=== PATIENT | female | born 1935 | race Caucasian/White ===

== ENCOUNTER → 2018-02-26 | Outpatient (CLI) | payer MEDICARE, MEDICAID | LOC: M RAD 13:50 | DX: N18.4 Chronic kidney disease, stage 4 (severe) (principal) | CPT/HCPCS: 76775 ==

== ENCOUNTER → 2018-05-16 | Outpatient (REF) | payer MEDICARE, MEDICAID ==
[2018-05-16 17:59] LABS: FREE T4 1.54 NG/DL (0.76-1.46)
== END ==
LOC: M LAB REF 17:10
DX: E03.9 Hypothyroidism, unspecified (principal)
CPT/HCPCS: 84443

== ENCOUNTER → 2018-07-05 | Outpatient (REF) | payer MEDICARE, MEDICAID ==
[2018-07-08 14:40] LABS: URINE VOLUME RANDOM ML
[2018-07-08 14:41] LABS: UPEP INTERPRETATION NO M-SPIKE NOTED
== END ==
LOC: M LAB REF 13:02
DX: N39.0 Urinary tract infection, site not specified (principal); D63.1 Anemia in chronic kidney disease; E83.52 Hypercalcemia

== ENCOUNTER → 2018-08-19 | Outpatient (REF) | payer MEDICARE, MEDICAID ==
[2018-08-19 19:16] LABS: PTH INTACT 18.6 PG/ML (18.5-88.0)
== END ==
LOC: M LAB REF 17:25
DX: E83.52 Hypercalcemia (principal)
CPT/HCPCS: 83970

== ENCOUNTER 2018-11-05 10:28 | Inpatient (IN) | payer MEDICARE, MEDICAID ==
[~2018-11-05] VITALS: Ht 147.3 cm; Wt 29.3 kg
[~2018-11-05 10:28] MED LIST: AMLO5TAB6 PO; AMLODIPINE; CALC1CAP31 PO; FERR32TA PO; LEVO250T12 PO; LOSA100T50 PO; MEGE400SUS PO
[2018-11-05] MEDS ORDERED: NS 1,000 ML IV ONE ×2 (11:00→13:30)
[2018-11-05 12:12] LABS: BASO % 0.3 % (0.0-1.0); EOS # 0.1 10^3/uL (0.0-0.50); EOS % 0.4 % (0.0-3.0); HEMOGLOBIN 10.5 g/dl (12.0-15.5); LYMPH # 1.7 10^3/uL (1.5-4.5); LYMPH % 11.9 % (24.0-44.0); MEAN CORPUSCULAR HEMOGLOBIN 27.7 pg (27.0-33.0); MEAN CORPUSCULAR HGB CONC 30.9 g/dl (32.0-36.5); MEAN CORPUSCULAR VOLUME 89.7 fl (80.0-96.0); MONO # 1.6 10^3/uL (0.0-0.8); MONO % 11.2 % (0.0-5.0); NEUTROPHILS # 10.7 10^3/uL (1.8-7.7); NEUTROPHILS % 75.4 % (36.0-66.0); PLATELET COUNT, AUTOMATED 288 10^3/uL (150-450); RED BLOOD COUNT 3.79 10^6/uL (4.00-5.40); WHITE BLOOD COUNT 14.2 10^3/uL (4.0-10.0)
--- NOTE | 2018-11-05 12:17 | REP ---
Chest x-ray: Single view. History: Weakness. Comparison study: July 05, 2018. Findings: There is evidence of left pleural effusion. There is a air and fluid density in the left base which may be a hiatal hernia or cavitary lesion. There is a large opacity in the left base as well. Findings are essentially unchanged from July 05, 2018. They are new when compared with 2006 prior radiograph. Impression: Large area of pleuroparenchymal opacity left base. Possible cavitary change. Possible hiatal hernia. Consider chest CT study. Electronically Signed by Facundo Garcia MD 11/05/2018 12:08 P
[2018-11-05 12:48] LABS: ALBUMIN 2.7 GM/DL (3.2-5.2); BILIRUBIN,DIRECT 0.1 MG/DL (0.0-0.2); BILIRUBIN,TOTAL 0.3 MG/DL (0.2-1.0); CALCIUM LEVEL 12.7 MG/DL (8.8-10.2); CREATININE FOR GFR 2.72 MG/DL (0.55-1.30); GLOMERULAR FILTRATION RATE 17.8 (>32); POTASSIUM SERUM 5.9 MEQ/L (3.5-5.1); TROPONIN I 0.07 NG/ML (< 0.10)
[2018-11-05 14:35] VITALS: BP 119/54
[2018-11-05 15:06] LABS: PTH INTACT 20.8 PG/ML (18.5-88.0); TOTAL 25(OH) VITAMIN D 42.5 NG/ML (30.0-100.0)
--- NOTE | 2018-11-05 15:33 | REP ---
CT chest without contrast: History: Abnormal chest x-ray. CT findings: Overall, the lungs are hyperinflated. There is a large dense area of necrotic consolidation in the left lower lobe. This contains air and some fluid. It has convex anterior, superior and inferior borders. There is a small quantity of adjacent pleural fluid suspected. It is less than optimally visualized in the absence of intravenous contrast. There is evidence of occlusion or obstruction of the lower lobe bronchus at the upper margin of the lesion. There appears to be subcarinal adenopathy. Scattered AP window and left hilar lymph nodes are seen consistent with some mediastinal adenopathy. Emphysematous changes are noted in the upper lobes bilaterally. Fairly heavy vascular calcifications noted. No adrenal lesion is seen. The upper portion of the left kidney is included in the field of view and is unremarkable. I do not see a right kidney. Right renal atrophy was reported on previous ultrasound. No bony destructive lesion is seen. Impression: Large necrotic mass versus infiltrate in the left lower lobe of the lung with air fluid levels internally. There is evidence of left hilar and mediastinal lymphadenopathy. Malignancy versus chronic lung abscess. Electronically Signed by Facundo Garcia MD 11/05/2018 06:11 P
[2018-11-05] MEDS: NS 1,000 ML IV SCH ×2 (15:50→23:11)
--- NOTE | 2018-11-05 17:02 | HPE ---
DATE OF ADMISSION: 11/05/2018 An 83-year-old female with past medical history of chronic kidney disease (CKD) IV, hypertension, hyperlipidemia, asthma, mild dementia presents to the emergency room for decreased oral intake for the last week. According to the family, this has been progressive. With that and increased lethargy, she was brought to the emergency room (ER) for evaluation. In the ER she was found to be in acute renal failure and was started on intravenous (IV) fluids. A chest x-ray did showed possible cavitary lesion in the left lower lobe. CT chest confirmed it, and likely is a possibility of malignancy. Upon recent admission in June, it was noted that she lost approximately 30 pounds. She was hypercalcemic back then, and she is more hypercalcemic this time. To note, the cavitary lesion also cannot exclude the possibility of a consolidation near it, though the patient denies any upper respiratory symptoms. The patient was started on IV Zosyn, and, again, IV fluids were initiated. She will be admitted for further management. PAST MEDICAL HISTORY: 1. CKD IV. 2. Hypertension. 3. Hyperlipidemia. 4. Osteoporosis. 5. Asthma. 6. Mild dementia. ALLERGIES: No known drug allergies. FAMILY HISTORY: Noncontributory. SOCIAL HISTORY: Patient was a pack a day smoker since she was a teenager. Quit approximately 3 yeas ago. She denies any alcohol or illicit drugs. HOME MEDICATIONS: As per pharmacy's reconciliation, the patient is currently on no medications. REVIEW OF SYSTEMS: Negative for all 10 major symptoms except what is mentioned in the history of present illness (HPI). VITAL SIGNS: Blood pressure 87/46, heart rate 77 and regular, respiratory rate 20, temperature is 96.9 with saturation 96% on room air. Head is atraumatic, normocephalic. NECK: Supple. No jugular venous distention (JVD). LUNGS: Clear to auscultation. S1, S2 audible. No murmurs appreciated. ABDOMEN: Soft. Positive bowel sounds. No pedal edema. SKIN: Intact. NEUROLOGIC: Patient is awake, alert, oriented times two. LABORATORY DATA: Sodium is 134, potassium 5.9, chloride 98, CO2 of 27. Anion gap 9, BUN 52, creatinine 2.72, glucose is 102, lactic acid 2.5, calcium is 12.7, corrected calcium is 13.7. Troponin 0.07. Creatine kinase 24. Lipase 97. AST 28, ALT 36. WBC 14.2, hemoglobin 10.5, hematocrit 34, platelets are 288,000. Urinalysis (UA) is negative for urinary tract infection (UTI). IMPRESSION: 1. Left lung cavitary mass. 2. Left lower lobe pneumonia. 3. Acute kidney injury. 4. Hypercalcemia. PLAN: Patient will be admitted to medical/surgical floor with telemetry. Will continue intravenous (IV) hydration, normal saline (NS) at 100 an hour. Unfortunately we cannot give Lasix. She is in acute kidney injury (BRITANY), and I feel this is all dehydration and prerenal in origin. Nephrology will be consulted, and I will discuss if intranasal calcitonin or pamidronate would be necessary at this time. Will follow BUN and creatinine trends daily. As far as the left lung cavitary lesion is concerned, I spoke with the son personally, and he is in agreement that no further testing should be done with pulmonary for tissue diagnosis of cancer. Though, from a clinical perspective this is most likely lung cancer (CA). Patient's family is also considering the possibility of transferring her to shelter facility. She is DO NOT RESUSCITATE/DO NOT INTUBATE; however, the talk of comfort measures only will be discussed with the family.
[2018-11-05] MEDS: PIPERACILLIN/TAZOBACTAM SOD 2.25 GM in D5W MINI-BAG PLUS 50 ML IV SCH (17:03)
--- NOTE | 2018-11-05 20:05 | ECGEPIP ---
Stationary ECG Study [facility] - ED Test Date: 2018-11-05 Pat Name: RASHAWN SHEIKH Department: Room: - Gender: F Elephant Keeper: sintia : 1935 Requested By: Archie Jackson Order Number: [id number] Reading MD: Archie Jackson Measurements Intervals [place] Rate: 75 P: 80 AK: 162 QRS: 18 QRSD: 125 T: 81 QT: 382 QTc: 429 Interpretive Statements SINUS RHYTHM WITH OCCASIONAL VENTRICULAR PREMATURE COMPLEXES LEFT BUNDLE BRANCH BLOCK BASELINE ARTIFACT MAY AFFECT READING CW 07/05/[address] T WAVE CHANGES Electronically Signed On 11-05-2018 20:04:59 EST by Archie Jackson
[2018-11-05] MEDS: CALCITONIN SALMON (MIACALCIN) 400INTERNATIONAL UNITS/2ML INJ (J0630) SQ SCH (21:28)
[2018-11-05 22:00] VITALS: BP 105/59
[2018-11-06] MEDS: PIPERACILLIN/TAZOBACTAM SOD 2.25 GM in D5W MINI-BAG PLUS 50 ML IV SCH ×3 (01:09→17:36)
[2018-11-06 06:00] VITALS: BP 109/53
[2018-11-06 06:15] LABS: BASO % 0.3 % (0.0-1.0); EOS # 0.2 10^3/uL (0.0-0.50); EOS % 1.5 % (0.0-3.0); HEMATOCRIT 26.4 % (36.0-47.0); LYMPH # 2.2 10^3/uL (1.5-4.5); LYMPH % 18.9 % (24.0-44.0); MEAN CORPUSCULAR HEMOGLOBIN 27.5 pg (27.0-33.0); MEAN CORPUSCULAR HGB CONC 31.1 g/dl (32.0-36.5); MEAN CORPUSCULAR VOLUME 88.6 fl (80.0-96.0); MONO # 1.3 10^3/uL (0.0-0.8); MONO % 10.8 % (0.0-5.0); NEUTROPHILS # 7.9 10^3/uL (1.8-7.7); NEUTROPHILS % 67.8 % (36.0-66.0); PLATELET COUNT, AUTOMATED 238 10^3/uL (150-450); RED BLOOD COUNT 2.98 10^6/uL (4.00-5.40); WHITE BLOOD COUNT 11.7 10^3/uL (4.0-10.0)
[2018-11-06 06:22] LABS: HEMOGLOBIN 8.2 g/dl (12.0-15.5)
[2018-11-06 06:53] LABS: ALBUMIN 1.9 GM/DL (3.2-5.2); BILIRUBIN,TOTAL 0.2 MG/DL (0.2-1.0); CALCIUM LEVEL 9.8 MG/DL (8.8-10.2); CREATININE FOR GFR 2.16 MG/DL (0.55-1.30); GLOMERULAR FILTRATION RATE 23.2 (>32); POTASSIUM SERUM 4.5 MEQ/L (3.5-5.1); TOTAL PROTEIN 5.7 GM/DL (6.4-8.2)
[2018-11-06] MEDS: CALCITONIN SALMON (MIACALCIN) 400INTERNATIONAL UNITS/2ML INJ (J0630) SQ SCH (09:19)
[2018-11-06] MEDS: NS 1,000 ML IV SCH ×2 (09:19→22:11)
[2018-11-06] MEDS ORDERED: PATIROMER SORBITEX CALCIUM 8.4 GM POWDER PACKET (VELTASSA) PO SCH (12:00)
[2018-11-06 14:00] VITALS: BP 132/59
--- NOTE | 2018-11-06 17:47 | IPNPDOC ---
Date Seen The patient was seen on 11/06/18. Progress Note SUBJECTIVE: Patient is a 83-year-old female with decreased oral intake. Patient is evaluated at bedside this morning. She is hard of hearing. Follow-up evaluation occurred later in the day when patient's son was available. Spoke with son at length regarding treatment options. Son is aware of questionable mass in left lower lobe which was noted on prior imaging on patient's last admission in June 2018. Son notes that patient has been in declining health over the last year and that he is the primary caregiver for his mother. He has attempted to solicit in-home health care, but states his mother dismisses their services and according to the son only wants him to care for her. He notes that after discharge from her prior admission her appetite was somewhat improved, but has been declining over the last several months and more dramatically over the last several days. Son states that he is finding it increasingly difficult to care for his mother as he has his own health concerns. Patient was recently at her primary care provider's office with recommendation to presented to the hospital for potential long-term placement. Patient is able to correctly identify herself, her date of , alert , the month, and vague reasoning for why she is in the hospital (she is sick). However, she is unable to correctly identify the year or the current president. A discussion was had with patient regarding long-term care. She stated that she is uncertain where her current treatment would end up. She is receptive to speaking with the renal social worker. She states that she is independent at home. She confirms that she has had falls at home. OBJECTIVE PHYSICAL EXAMINATION: VITAL SIGNS: Please see below. GENERAL: Frail, cachectic, pale elderly female, appears to be resting comfortably in the supine position in hospital., Hard of hearing, but alert and conversant and on since questions appropriately, does not appear to be in distress. HEENT: Atraumatic, normocephalic, temporal wasting, facial features are cachectic appearing, PERRL, EOMI, oral mucosa appears somewhat dry, nasal septum appears midline, nares are patent, trachea is midline, no lymphadenopathy, no thyromegaly. CARDIOVASCULAR: Regular rate and rhythm, normal S1 and S2, no murmur, rub, cl ick. RESPIRATORY: Clear to auscultation bilaterally, adequate inspiratory and extremity airway excursion, no audible focal consolidations, diminished in the left lower base, no crackles, wheeze, rhonchi. ABDOMINAL: Cachectic, no organomegaly, no rebound, no guarding, soft, nontender, nondistended, bowel sounds appreciated. EXTREMITIES: Cachectic, pale, no cyanosis, no clubbing, no peripheral edema. NEUROLOGICAL: No focal neurological deficits. PSYCHOLOGICAL: Mood and affect appear appropriate, hard of hearing. LABORATORY DATA, IMAGING STUDIES, MICROBIOLOGY: Please see below. Chest x-ray, 1 view on 11/05/2018 - large pleural parenchymal opacity left base. CT chest without contrast on 11/05/2018 - myalgia chronic mass versus infiltrate in left lower lobe with a fluid levels intentionally, evidence of left hilar and mediastinal lymphadenopathy. DVT prophylaxis ordered?: TEDs and sequentials. ASSESSMENT AND PLAN: This is a 83-year-old female with failure to thrive. PROBLEMS: 1. Failure to thrive: Reported weight in June 2018 was 33.64 kg. Current weight is reported at 29.27 kg. Current BMI is 13.5. Patient has poor oral intake. Patient is hypotensive likely secondary to decreased oral intake. Continue with normal saline at 60 mLs per hour. Have added Ensure Enlive and full nutritional assessment. Have added physical therapy for evaluation of weakness and deconditioning. Patient family services have been in contact with long-term care facility who will review patient's chart. Patient is a DNR/DNI. 2. Possible left lower lobe cavitary lesion: Mass versus abscess versus infiltrate. Son has stated that they would not like any invasive procedures or testing to determine etiology of finding on imaging. Lactic acidosis and leukocytosis likely result of underlying, currently unknown, lung lesion. Blood cultures have been negative. Urinalysis is negative. Empirically treating patient with Zosyn for the time being for possible infiltrative disease. Will attempt to obtain a sputum Gram stain and culture. 3. Hypercalcemia: Nephrology has been consulted. Corrected calcium is 11.5. Patient is on calcitonin. 25-hydroxy vitamin D level was within normal limits. Obtaining a PTH and 1, 25-hydroxy vitamin D level, and a PTHrP level. Nephrology has been consulted. 4. Hyperkalemia: Appears resolved. Continue patient on Veltassa. Nephrology has been consulted. 5. Chronic kidney disease, stage IV: Nephrology has been consulted. Cautiously providing intravenous fluid resuscitation with normal saline at 60 mLs per hour. Patient is DNR/DNI. Patient's son has indicated that they would not want any invasive procedures, such as dialysis catheters inserted into the patient. 6. Anemia: Patient does not appear to be actively bleeding. Will obtain iron studies and stool for occult bleeding. 7. Severe protein calorie malnutrition: BMI 13.5. Ensure Enlive has been added to diet. Full nutritional assessment has been ordered. DISPOSITION: PFS consultation. Physical therapy evaluation. VS, I&O, 24H, Fishbone Vital Signs/I&O Vital Signs Date Time Temp Pulse Resp B/P (MAP) Pulse Ox O2 Delivery O2 Flow Rate FiO2 11/06/18 14:00 97.6 90 16 132/59 (83) 96 Room Air I&O- Last 24 Hours up to 6 AM 11/06/18 06:00 Intake Total 3250 ml Output Total 780 ml Balance 2470 ml Laboratory Data 24H LABS Laboratory Tests 2 11/06/18 05:47: Immature Granulocyte % (Auto) 0.7, White Blood Count 11.7H, Red Blood Count 2.98L, Hemoglobin 8.2#L, Hematocrit 26.4L, Mean Corpuscular Volume 88.6, Mean Corpuscular Hemoglobin 27.5, Mean Corpuscular Hemoglobin Concent 31.1L, Red Cell Distribution Width 14.6H, Platelet Count 238, Neutrophils (%) (Auto) 67.8H, Lymphocytes (%) (Auto) 18.9L, Monocytes (%) (Auto) 10.8H, Eosinophils (%) (Auto) 1.5, Basophils (%) (Auto) 0.3, Neutrophils # (Auto) 7.9H, Lymphocytes # (Auto) 2.2, Monocytes # (Auto) 1.3H, Eosinophils # (Auto) 0.2, Basophils # (Auto) 0.0, Nucleated Red Blood Cells % (auto) 0.0, Anion Gap 8, Glomerular Filtration Rate 23.2L, Blood Urea Nitrogen 43H, Creatinine 2.16H, Sodium Level 137, Potassium Level 4.5#, Chloride Level 108H, Carbon Dioxide Level 21, Calcium Level 9.8#, Aspartate Amino Transf (AST/SGOT) 27, Alanine Aminotransferase (ALT/SGPT) 27, Alkaline Phosphatase 98, Total Bilirubin 0.2, Total Protein 5.7L, Albumin 1.9#L, Albumin/Globulin Ratio 0.50L CBC/BMP Laboratory Tests 11/06/18 05:47 Red Blood Count 2.98 L, Mean Corpuscular Volume 88.6, Mean Corpuscular Hemoglobin 27.5, Mean Corpuscular Hemoglobin Concent 31.1 L, Red Cell Distribution Width 14.6 H, Neutrophils (%) (Auto) 67.8 H, Lymphocytes (%) (Auto) 18.9 L, Monocytes (%) (Auto) 10.8 H, Eosinophils (%) (Auto) 1.5, Basophils (%) (Auto) 0.3, Neutrophils # (Auto) 7.9 H, Lymphocytes # (Auto) 2.2, Monocytes # (Auto) 1.3 H, Eosinophils # (Auto) 0.2, Basophils # (Auto) 0.0, Calcium Level 9.8 #, Aspartate Amino Transf (AST/SGOT) 27, Alanine Aminotransferase (ALT/SGPT) 27, Alkaline Phosphatase 98, Total Bilirubin 0.2, Total Protein 5.7 L, Albumin 1.9 #L Microbiology Microbiology 11/05/18 Blood Culture - Preliminary, Resulted No growth after 24 hours . All specim... 11/05/18 Blood Culture - Preliminary, Resulted No growth after 24 hours . All specim... ROSEMARY FARIAS DO Nov 06, 2018 17:47
[2018-11-06 19:06] LABS: PERCENT SATURATION 14.7 % (13.2-45.0)
[2018-11-06 19:14] LABS: FOLATE 9.2 NG/ML (>5.4)
[2018-11-06] MEDS ORDERED: VANCOMYCIN HCL 500 MG in D5W MINI-BAG PLUS 100 ML IV ONE (20:15)
[2018-11-06 22:00] VITALS: BP 120/56
--- NOTE | 2018-11-06 23:27 | PHACANCOPD ---
PHARMACY VANCOMYCIN DOSING Pt Demographics Demographics Patient Age:83 , Weight:29.270 , Gender: female Adjusted Body Weight Events Past 24 Hours Events Past 24 Hours: NO: Dialysis, Diuretic Therapy, Change in CrCl, Fever, Elevation in WBC, Pending Diagnostics, Pending Procedures, Other Vancomycin Vancomycin indication: PNEUMONIA Vancomycin Target Ranges: 15-20 mcg/ml Vancomycin Load Y/N: No Load Dose Date Time Vancomycin Load Dose: 500MG Date: 11/06/18 Time: 22:15 per NEPHR OLOGY Vancomycin Dose Date: 11/07/18. Current Vancomycin Dose: [500MG IV Q24H (21:00)] Intermittent Dosing?: No Labs Labs Laboratory Tests 11/06/18 05:47 Red Blood Count 2.98 L, Mean Corpuscular Volume 88.6, Mean Corpuscular Hemoglobin 27.5, Mean Corpuscular Hemoglobin Concent 31.1 L, Red Cell Distribution Width 14.6 H, Neutrophils (%) (Auto) 67.8 H, Lymphocytes (%) (Auto) 18.9 L, Monocytes (%) (Auto) 10.8 H, Eosinophils (%) (Auto) 1.5, Basophils (%) (Auto) 0.3, Neutrophils # (Auto) 7.9 H, Lymphocytes # (Auto) 2.2, Monocytes # (Auto) 1.3 H, Eosinophils # (Auto) 0.2, Basophils # (Auto) 0.0, Calcium Level 9.8 #, Aspartate Amino Transf (AST/SGOT) 27, Alanine Aminotransferase (ALT/SGPT) 27, Alkaline Phosphatase 98, Total Bilirubin 0.2, Total Protein 5.7 L, Albumin 1.9 #L Micro Microbiology 11/05/18 Blood Culture - Preliminary, Resulted No growth after 24 hours . All specim... 11/05/18 Blood Culture - Preliminary, Resulted No growth after 24 hours . All specim... Creatinine Clearance Date:11/06/18. Creatinine Clearance: [<15ml/min]. Pending Labs VANCO TROUGH 11/08/18 21:00 DOSE Assessment and Plan Maintaining Current Dose?: Yes Reason for dose change: No Dose Change Pharmacist Note Pharmacist Note Date: 11/06/18. PharmD note: VANCO 500MG IV x DOSE PER NEPHROLOGY WITH Rx TO CONSULT FOR VANCO TROUGH GOAL 15-20 mcg/ml. WE WILL CONTINUE WITH VANCO 500MG IV Q24H STARTING 11/07/18 @ 21:00 A VANCO TROUGH HAS BEEN ORDERED 60 MINUTES PRIOR TO THE 11/08/18 PRIOR TO THE 21:00 DOSE [facility]LLY [facility]UL[facility] Nov 06, 2018 23:27
[2018-11-07] MEDS: PIPERACILLIN/TAZOBACTAM SOD 2.25 GM in D5W MINI-BAG PLUS 50 ML IV SCH ×3 (01:06→17:04)
[2018-11-07 06:00] VITALS: BP 113/53
[2018-11-07 06:31] LABS: BASO % 0.3 % (0.0-1.0); EOS # 0.2 10^3/uL (0.0-0.50); EOS % 1.3 % (0.0-3.0); HEMATOCRIT 26.7 % (36.0-47.0); HEMOGLOBIN 8.3 g/dl (12.0-15.5); LYMPH % 16.2 % (24.0-44.0); MEAN CORPUSCULAR HEMOGLOBIN 27.3 pg (27.0-33.0); MEAN CORPUSCULAR HGB CONC 31.1 g/dl (32.0-36.5); MEAN CORPUSCULAR VOLUME 87.8 fl (80.0-96.0); MONO # 1.6 10^3/uL (0.0-0.8); MONO % 12.5 % (0.0-5.0); NEUTROPHILS # 8.6 10^3/uL (1.8-7.7); PLATELET COUNT, AUTOMATED 266 10^3/uL (150-450); RED BLOOD COUNT 3.04 10^6/uL (4.00-5.40); WHITE BLOOD COUNT 12.4 10^3/uL (4.0-10.0)
[2018-11-07 06:59] LABS: ALBUMIN 1.9 GM/DL (3.2-5.2); CALCIUM LEVEL 8.8 MG/DL (8.8-10.2); CREATININE FOR GFR 1.8 MG/DL (0.55-1.30); GLOMERULAR FILTRATION RATE 28.6 (>32); PHOSPHORUS LEVEL 2.4 MG/DL (2.5-4.9); POTASSIUM SERUM 3.9 MEQ/L (3.5-5.1)
[2018-11-07] MEDS ORDERED: IRON SUCROSE 100MG 5ML VIAL (J1756 PER 1MG) IV SCH (09:00)
[2018-11-07] MEDS: IRON SUCROSE 200 MG in NS 100 ML OVER 1 HR IV SCH (09:28)
--- NOTE | 2018-11-07 10:16 | CR ---
DATE: 11/06/2018 REQUESTING PHYSICIAN: Dr. Zi Moore REASON FOR CONSULTATION: Management of acute kidney injury and hypercalcemia. CHIEF COMPLAINT: Patient was brought to the hospital with progressive lethargy, decreased oral intake and failure to thrive. HISTORY OF PRESENT ILLNESS: Note: History was obtained from the patient's chart and from the medical team. Patient was unable to provide any reliable history. Valery Johnson is an 83-year-old female with a past medical history of chronic kidney disease stage IV with the best baseline creatinine of around 1.8 as of June 2018. Hypertension, dementia, hard of hearing. She was brought to the emergency room because of progressive failure to thrive, decreased oral intake, weakness, lethargy. Further investigation including imaging and lab review in the emergency room showed the patient was in acute renal failure with a creatinine of 2.7. She was hyperkalemic with a potassium of 5.9 and hypercalcemic with a calcium of 12.7. Patient was also found to have leukocytosis and lactic acidosis. She was admitted under the hospitalist service last night. She was started on IV fluid hydration and was started on empiric antibiotic coverage. Chest x-ray followed by CT scan in the emergency room showed that she had a cavitary lesion in the left lower lobe of the lung, which was concerning for malignancy. I saw and evaluated the patient this morning at the bedside. She is very hard of hearing. She answers very few questions. With the IV fluid hydration overnight, that I already discussed with the admitting hospitalist, Dr. Moore, her renal function is improving. Her electrolytes are also getting better. Patient is very weak and cachectic. I have already decreased her IV fluid rate to 60 mL/h. PAST MEDICAL HISTORY: Chronic kidney disease stage IV. Baseline creatinine of around 1.8 as of June 2018. Hypertension. Hyperlipidemia. Osteoporosis. Dementia. Asthma. Anemia. PAST SURGICAL HISTORY: History of open reduction internal fixation of the right hip fracture. Bilateral cataract surgery. ALLERGIES: No known drug allergies. FAMILY HISTORY: No significant family history of end-stage renal disease requiring hemodialysis. SOCIAL HISTORY: No history of illicit drug abuse or alcohol abuse. Patient used to be an active smoker. She quit 3 years ago. REVIEW OF SYSTEMS: She was unable to provide any reliable review of systems to me. She is very hard of hearing and she answers very few questions. PHYSICAL EXAMINATION: GENERAL: Patient is awake and alert. Very weak, cachectic with bitemporal wasting sitting up in the bed. VITAL SIGNS: Temperature is 96.9 degrees Fahrenheit, blood pressure 87/46, pulse 77, respiratory rate 20, saturating 96% in room air. Intake and output: Urine output recorded as 1370 mL overnight. HEAD/NECK: Patient has bitemporal wasting and cachectic. Mucous membranes are moist. Neck is supple. There is no jugular venous distention (JVD). CARDIOVASCULAR: S1, S2 regular rate. No murmur, rub or gallop. RESPIRATORY: Decreased breath sounds at the bases, especially on the left side. ABDOMEN: Soft, positive bowel sounds. Nontender. No organomegaly. MUSCULOSKELETAL: No clubbing or stenosis. Pulses are 2+. PRE PRESS OPERATOR: No focal deficit. Patient is very hard of hearing. She follows few commands. SKIN: No rashes or ulcers. LAB REVIEW: CBC showed a WBC 11.7, hemoglobin 8.2, platelets 238. BMP showed sodium 137, potassium 4.5, chloride 108, bicarbonate 21, BUN 43, creatinine 2.1. Lactic acid this morning is 2.3. Calcium 9.8, iron 20, TIBC 136, transferrin saturation 14.7, ferritin 275, albumin 1.9. BMP on arrival showed sodium 134, potassium 5.9, chloride 98, bicarbonate 27, BUN 52, creatinine 2.7, calcium 12.7. Microbiology: Blood cultures are negative so far. IMAGING: A CT of the chest was done without contrast which showed large necrotic mass versus infiltrate in the left lower lobe of the lung with air fluid levels internally. There is evidence of a left hilar and mediastinal lymphadenopathy. Malignancy versus chronic lung abscess. HOME MEDICATIONS: Patient's home medications included iron tablet, Levaquin and Megace. CURRENT INPATIENT MEDICATIONS: The patient's inpatient medications include normal saline. I decreased the rate to 60 mL/h. She is on Zosyn 2.5 gram every 8 hours. She has been taking calcitonin 120 units subcutaneous every 12 hours. She is on Veltassa, which I am holding at this point since potassium level is improved. ASSESSMENT: 83-year-old female with acute kidney disease superimposed on chronic kidney disease stage IV, hyperkalemia, hyponatremia, hypercalcemia, left-sided cavitary lung lesion with superimposed pneumonia. PLAN: 1. Acute kidney injury superimposed on chronic kidney disease stage IV: It is secondary to dehydration and volume depletion. Patient was started on IV fluid hydration. I already discussed the case with the admitting physician overnight. Patient's renal function is improving. Creatinine has come down to 2.1. Baseline creatinine is 1.8. Given her body mass and weight of only 29 kg, I decreased the IV fluid rate to 60 mL/h only. 2. Hyperkalemia: This is secondary to a worsening renal failure. Patient was given a dose of Veltassa. She is also getting IV fluid hydration. With improving urine output potassium level has improved. No further need of use of Veltassa. 3. Hyponatremia: It was hypovolemic hyponatremia. Sodium is improving with IV fluid hydration. 4. Left lower lobe pneumonia: Patient most likely has superimposed pneumonia on the left-sided lung mass. Continue current dose of Zosyn 2.5 grams every 8 hours, which adequately covers gram negatives and aerobes as well. I am going to start the patient on vancomycin as well for gram positive coverage. 5. Anemia and chronic kidney disease stage IV: Patient has iron deficiency as well. I am going to start the patient on IV iron. 6. Protein calorie malnutrition: I am going to start the patient Nepro one can daily with lunch. 7. Left lower lobe lung cavitary lung lesion: Patient most likely has a malignancy on the left side. As per documentation, patient's family members do not want any aggressive further workup or treatment. Continue conservative management only. Patient is a DO NOT RESUSCITATE at this point. 8. Hypercalcemia: It is most likely related to malignancy. Patient was admitted with hypercalcemia previously as well. During previous hospitalization, it was deemed secondary to use of her calcitriol but at this point, clearly cavitary lung lesion along with hypercalcemia is most likely secondary to malignancy. Patient is already getting IV fluid hydration and weight-based calcitonin. Calcium level is already improving. No need of use of zoledronic acid in this patient. PTH appropriately low. Vitamin levels are within normal range. Thank you for involving me in the case of this patient. I shall be happy to follow the patient along with you tomorrow morning. [facility]
[2018-11-07 12:00] VITALS: BP 145/66
[2018-11-07 14:00] VITALS: BP 145/66
--- NOTE | 2018-11-07 17:18 | IPNPDOC ---
Date Seen The patient was seen on 11/07/18. Progress Note SUBJECTIVE: Patient is a 83-year-old female with decreased oral intake. Patient is evaluated at bedside this morning. Her son and [id number] are present at bedside. Patient is hard of hearing. She states that she feels she has difficulty breathing, but does not feel short of breath. She is not nauseous, vomiting, or having abdominal pain. She is not having chest pain. Family state that prior to admission to the hospital patient would rarely consume three meals daily and would spend majority of her time in bed. Family feels as though she has become more reliant on them for support and although they have attempted to get home health in the home, she has always dismissed them. Family do feel that she is safe to go home. She currently lives independently with family visiting daily to prepare meals. OBJECTIVE PHYSICAL EXAMINATION: VITAL SIGNS: Please see below. GENERAL: Frail, cachectic, pale elderly female, appears to be resting comfortably in the supine position in hospital, hard of hearing, but alert and conversant, answers questions appropriately, does not appear to be in distress. HEENT: Atraumatic, normocephalic, temporal wasting, facial features are cachectic appearing, PERRL, EOMI, wears spectacles, oral mucosa appears somewhat dry, nasal septum appears midline, nares are patent, trachea is midline, no lymphadenopathy, no thyromegaly. CARDIOVASCULAR: Regular rate and rhythm, normal S1 and S2, no murmur, rub, click. RESPIRATORY: Clear to auscultation bilaterally, adequate inspiratory and extremity airway excursion, no audible focal consolidations, diminished in the left lower base, no crackles, wheeze, rhonchi. ABDOMINAL: Cachectic, no organomegaly, no rebound, no guarding, soft, nontender, nondistended, bowel sounds appreciated. EXTREMITIES: Cachectic, pale, no cyanosis, no clubbing, no peripheral edema. NEUROLOGICAL: No focal neurological deficits. PSYCHOLOGICAL: Mood and affect appear appropriate, hard of hearing. LABORATORY DATA, IMAGING STUDIES, MICROBIOLOGY: Please see below. Chest x-ray, 1 view on 11/05/2018 - large pleural parenchymal opacity left base. CT chest without contrast on 11/05/2018 - myalgia chronic mass versus infiltrate in left lower lobe with a fluid levels intentionally, evidence of left hilar and mediastinal lymphadenopathy. DVT prophylaxis ordered?: TEDs and sequentials. ASSESSMENT AND PLAN: This is a 83-year-old female with failure to thrive. PROBLEMS: 1. Failure to thrive: Reported weight in June 2018 was 33.64 kg. Current weight is reported at 29.27 kg. Current BMI is 13.5. Patient has poor oral intake. Patient is hypotensive likely secondary to decreased oral intake. Intravenous fluids have been discontinued. Nutritional assessment have recommended Ensure Enlive 3x daily with meals. Have added physical therapy recommends continued physical therapy upon discharge, to be out of bed for meals, and that patient is not currently safe for discharge. Family express their inability to care for patient and have safety concerns regarding her ability to care for herself. Family requesting potential placement in a long- term care facility. Patient and family services have contacted local long-tern care facilities who will review barbara's chart. Patient is a DNR/DNI. 2. Possible left lower lobe cavitary lesion with possible underlying infiltrate: Mass versus abscess versus infiltrate. Son has stated that they would not like any invasive procedures or testing to determine etiology of finding on imaging. Lactic acidosis and leukocytosis likely result of underlying, currently unknown, lung lesion versus underlying community acquired pneumonia. Vancomycin has been added. Continue with Zosyn. Will obtain MRSA screen. Blood cultures have been negative. Urinalysis is negative. Will attempt to obtain a sputum Gram stain and culture. 3. Hypercalcemia: Nephrology has been consulted. Corrected calcium is 10.5. Possibly secondary to underlying, yet undiagnosed cancer (as evident by cavitary lung lesion). Family has elected not to pursue any further invasive testing. Calcitonin has been discontinued. Intact PTH was within normal limits. 25-Hydroxyvitamin D was within normal limits. Pending PTHrP and 1,25- Dihydroxyvitamin D levels. 4. Hyperkalemia: Resolved. Valtessa has been discontinued. 5. 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 Iron stores and TIBC are low with transferrin sa turation < 20% and a high ferritin. Providing patient with iron transfusion which will improve iron stores and anemia. 6. Acute on chronic kidney disease, stage IV: Nephrology has been consulted. In travenous fluid resuscitation has been discontinued. Improvement in creatinine. 7. Severe protein calorie malnutrition: BMI 13.5. Continue with Ensure Enlive 3x daily. DISPOSITION: Possible long-term placement. VS, I&O, 24H, Fishbone Vital Signs/I&O Vital Signs Date Time Temp Pulse Resp B/P (MAP) Pulse Ox O2 Delivery O2 Flow Rate FiO2 11/07/18 14:00 98.6 78 24 145/66 (92) 98 Room Air I&O- Last 24 Hours up to 6 AM 11/07/18 06:00 Intake Total 1440 ml Output Total 1220 ml Balance 220 ml Laboratory Data 24H LABS Laboratory Tests 2 11/06/18 18:18: Iron Level 20L, Total Iron Binding Capacity 136L, Transferrin % Saturation 14.7, Ferritin 275H, Vitamin B12 Level 308, Folate 9.2 11/07/18 05:53: Immature Granulocyte % (Auto) 0.7, White Blood Count 12.4H, Red Blood Count 3.04L, Hemoglobin 8.3L, Hematocrit 26.7L, Mean Corpuscular Volume 87.8, Mean Corpuscular Hemoglobin 27.3, Mean Corpuscular Hemoglobin Concent 31.1L, Red Cell Distribution Width 14.7H, Platelet Count 266, Neutrophils (%) (Auto) 69.0H, Lymphocytes (%) (Auto) 16.2L, Monocytes (%) (Auto) 12.5H, Eosinophils (%) (Auto) 1.3, Basophils (%) (Auto) 0.3, Neutrophils # (Auto) 8.6H, Lymphocytes # (Auto) 2.0, Monocytes # (Auto) 1.6H, Eosinophils # (Auto) 0.2, Basophils # (Auto) 0.0, Nucleated Red Blood Cells % (auto) 0.0, Blood Urea Nitrogen 29H, Creatinine 1.80H, Sodium Level 140, Potassium Level 3.9, Chloride Level 112H, Carbon Dioxide Level 18L, Anion Gap 10, Glomerular Filtration Rate 28.6L, Calcium Level 8.8, Phosphorus Level 2.4L, Albumin 1.9L 11/07/18 07:21: Lactic Acid Level 0.7 CBC/BMP Laboratory Tests 11/07/18 05:53 Red Blood Count 3.04 L, Mean Corpuscular Volume 87.8, Mean Corpuscular Hemoglob in 27.3, Mean Corpuscular Hemoglobin Concent 31.1 L, Red Cell Distribution Width 14.7 H, Neutrophils (%) (Auto) 69.0 H, Lymphocytes (%) (Auto) 16.2 L, Monocytes (%) (Auto) 12.5 H, Eosinophils (%) (Auto) 1.3, Basophils (%) (Auto) 0.3, Neutrophils # (Auto) 8.6 H, Lymphocytes # (Auto) 2.0, Monocytes # (Auto) 1.6 H, Eosinophils # (Auto) 0.2, Basophils # (Auto) 0.0, Anion Gap 10 Microbiology Microbiology 11/05/18 Blood Culture - Preliminary, Resulted No Growth after 48 hours. All Specime... 11/05/18 Blood Culture - Preliminary, Resulted No Growth after 48 hours. All Specime... 11/07/18 MRSA Screen, Received Pending ROSEMARY FARIAS DO Nov 07, 2018 17:18
[2018-11-07] MEDS ORDERED: VANCOMYCIN HCL 500 MG in D5W MINI-BAG PLUS 100 ML IV SCH (21:00)
--- NOTE | 2018-11-07 21:45 | IPN ---
DATE: 11/07/2018 SUBJECTIVE: Patient was seen and examined at the bedside today morning. Her renal function is improving. Creatinine is down to 1.8. Patient has very decreased oral intake. She is very weak and cachectic. She still has mild leukocytosis. Calcium level has improved within the normal range. OBJECTIVE: Vital signs: Temperature is 97.9 degrees Fahrenheit, blood pressure 113/53, pulse is 83, respiratory rate of 17, saturating 94% on room air. Intake and output: Urine output recorded since overnight is 950 mL. Weight in the bed scale is not available. PHYSICAL EXAMINATION: GENERAL: Patient is awake, lying in bed, very weak, cachectic with bitemporal wasting. HEAD AND NECK: Pupils are equally round and reactive to light. Mucous membranes are moist. Neck is supple. There is no jugular venous distention (JVD). CARDIOVASCULAR: S1, S2, regular rate. No edema of the bilateral lower extremities. RESPIRATORY: Chest is clear to auscultation on the left side. She has decreased breath sounds on the right base with mild inspiratory crackles. ABDOMEN: Soft. Positive bowel sounds. Nontender. No organomegaly. MUSCULOSKELETAL: No clubbing or cyanosis. Pulses are 2+. CENTRAL NERVOUS SYSTEM: No focal neurological deficit. She is very hard of hearing; otherwise, she follows few commands and moves upper extremities. SKIN: No rashes or ulcers. LABORATORY REVIEW: CBC showed a WBC 12.4, hemoglobin 8.3, platelets are 266. BMP showed sodium 140, potassium 3.9, chloride 112, bicarbonate is 18, BUN is 29, creatinine is 1.8. Repeat lactic acid is 0.7, phosphorus is 2.4. Albumin 1.9. Microbiology: Blood cultures are negative so far. CURRENT INPATIENT MEDICATIONS: Patient's medications were all reviewed by me. She is currently on intravenous (IV) Zosyn. IV fluids have been stopped. She is receiving Venofer 200 mg IV daily. She is also getting vancomycin 500 mg IV daily. ASSESSMENT AND PLAN: 1. Acute kidney injury superimposed on chronic kidney disease, stage IV. Patient's renal function has improved back to her baseline. Her baseline creatinine is 1.8. Intravenous (IV) fluids have been stopped now. 2. Hyperkalemia. Patient's potassium level is improved with the IV fluid hydration. 3. Left lower lobe pneumonia. Patient is currently on IV Zosyn and vancomycin. Fluid is adequate for her renal function. 4. Anemia secondary to iron deficiency and chronic kidney disease, stage IV. Patient is getting daily Venofer. Hemoglobin is 8.3, which is suboptimal. No need of blood transfusion at this point. 5. Protein calorie malnutrition. Continue daily Nepro. Encourage oral intake. 6. Hypercalcemia. Calcium level is improved within the normal range. It is most likely associated with malignancy in the left lung. 7. Left lower lobe cavitary lung lesion. Most likely is lung cancer. Family does not want any further workup. Continue conservative management.
[2018-11-07 22:00] VITALS: BP 136/60
[2018-11-08] MEDS: PIPERACILLIN/TAZOBACTAM SOD 2.25 GM in D5W MINI-BAG PLUS 50 ML IV SCH ×3 (00:36→16:51)
[2018-11-08 06:00] VITALS: BP 117/56
[2018-11-08 06:09] LABS: BASO % 0.3 % (0.0-1.0); EOS # 0.2 10^3/uL (0.0-0.50); EOS % 1.6 % (0.0-3.0); HEMATOCRIT 27.5 % (36.0-47.0); HEMOGLOBIN 8.7 g/dl (12.0-15.5); LYMPH # 2.3 10^3/uL (1.5-4.5); LYMPH % 17.6 % (24.0-44.0); MEAN CORPUSCULAR HEMOGLOBIN 27.8 pg (27.0-33.0); MEAN CORPUSCULAR HGB CONC 31.6 g/dl (32.0-36.5); MEAN CORPUSCULAR VOLUME 87.9 fl (80.0-96.0); MONO # 1.6 10^3/uL (0.0-0.8); MONO % 12.5 % (0.0-5.0); NEUTROPHILS # 8.8 10^3/uL (1.8-7.7); NEUTROPHILS % 67.2 % (36.0-66.0); PLATELET COUNT, AUTOMATED 250 10^3/uL (150-450); RED BLOOD COUNT 3.13 10^6/uL (4.00-5.40); WHITE BLOOD COUNT 13.1 10^3/uL (4.0-10.0)
[2018-11-08 06:34] LABS: ALBUMIN 1.7 GM/DL (3.2-5.2); CALCIUM LEVEL 9.4 MG/DL (8.8-10.2); CREATININE FOR GFR 1.78 MG/DL (0.55-1.30); PHOSPHORUS LEVEL 2.8 MG/DL (2.5-4.9)
[2018-11-08] MEDS: IRON SUCROSE 200 MG in NS 100 ML OVER 1 HR IV SCH (09:29)
--- NOTE | 2018-11-08 11:20 | IPNPDOC ---
Date Seen The patient was seen on 11/08/18. Progress Note SUBJECTIVE: Patient is a 83-year-old female with decreased oral intake. Patient is evaluated at bedside this morning. Patient appears to be resting comfortably. Patient is hard of hearing. Patient denies chest pain, shortness of breath, nausea, vomiting, abdominal pain. She states that she rested well overnight. She admits that her diet is "so-so." OBJECTIVE PHYSICAL EXAMINATION: VITAL SIGNS: Please see below. GENERAL: Frail, cachectic, pale elderly female, appears to be resting comfortably on her right side in hospital bed, hard of hearing, but alert and conversant, answers questions appropriately, does not appear to be in distress. HEENT: Atraumatic, normocephalic, temporal wasting, facial features are cachectic appearing, PERRL, EOMI, wears spectacles, oral mucosa appears somewhat dry, nasal septum appears midline, nares are patent, trachea is midline, no lymphadenopathy, no thyromegaly. CARDIOVASCULAR: Regular rate and rhythm, normal S1 and S2, no murmur, rub, click. RESPIRATORY: Clear to auscultation bilaterally, poor inspiratory and extremity effort, no audible focal consolidations, diminished in the left lower base, no crackles, wheeze, rhonchi. ABDOMINAL: Cachectic, no organomegaly, no rebound, no guarding, soft, nontender, nondistended, bowel sounds appreciated. EXTREMITIES: Cachectic, pale, no cyanosis, no clubbing, no peripheral edema. NEUROLOGICAL: No focal neurological deficits. PSYCHOLOGICAL: Mood and affect appear appropriate, hard of hearing. LABORATORY DATA, IMAGING STUDIES, MICROBIOLOGY: Please see below. Chest x-ray, 1 view on 11/05/2018 - large pleural parenchymal opacity left base. CT chest without contrast on 11/05/2018 -large necrotic mass versus infiltrate in left lower lobe with a fluid levels internally, evidence of left hilar and mediastinal lymphadenopathy. DVT prophylaxis ordered?: TEDs and sequentials. ASSESSMENT AND PLAN: This is a 83-year-old female with failure to thrive. PROBLEMS: 1. Failure to thrive: Reported weight in June 2018 was 33.64 kg. Current weight is reported at 29.27 kg. Current BMI is 13.5. Patient has poor oral intake. Blood pressure has improved. Continue with Ensure Enlive 3x daily. Continue with physical therapy. Recommendations include continued physical therapist center manager apy upon discharge, to be out of bed for meals, and that patient is not currently safe for discharge. Family expressed their inability to care for patient and have safety concerns regarding her ability to care for herself. Family requesting potential placement in a long-term care facility. Patient and family services have contacted local long-[facility] care facilities who will review patient's chart. Patient is a DNR/DNI. 2. Possible left lower lobe cavitary lesion with possible underlying infiltrate: Mass versus abscess versus infiltrate. Son has stated that they would not like any invasive procedures or testing to determine etiology of finding on imaging. MRSA screen was negative. Vancomycin has been discontinued. Blood cultures have been negative. Urinalysis is negative. Attempt to obtain sputum Gram stain and culture. 3. Leukocytosis: Patient is afebrile without hypotension or tachycardia. Leukocytosis likely secondary to it undiagnosed potential malignancy noted in left lower lobe. 4. Hypercalcemia: Nephrology has been consulted. Corrected calcium is 11.5. Possibly secondary to underlying, yet undiagnosed cancer (as evident by cavitary lung lesion). Family has elected not to pursue any further invasive testing. Intact PTH was within normal limits. 25-Hydroxyvitamin D was within normal limits. Pending PTHrP and 1,25-Dihydroxyvitamin D levels. 5. 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 Iron stores and TIBC are low with transferrin saturation < 20% and a high ferritin. Providing patient with iron transfusion which should improve iron stores and anemia. 6. Acute on chronic kidney disease, stage IV: Nephrology has been consulted. Improvement in creatinine. 7. Severe protein calorie malnutrition: BMI 13.5. Continue with Ensure Enlive 3x daily. DISPOSITION: Possible long-term placement. Possible discussion with family regarding [facility]. VS, I&O, 24H, Fishbone Vital Signs/I&O Vital Signs Date Time Temp Pulse Resp B/P (MAP) Pulse Ox O2 Delivery O2 Flow Rate FiO2 11/08/18 06:00 99.0 82 17 117/56 (76) 96 Room Air I&O- Last 24 Hours up to 6 AM 11/08/18 06:00 Intake Total 1280 ml Output Total 800 ml Balance 480 ml Laboratory Data 24H LABS Laboratory Tests 2 11/08/18 05:51: Immature Granulocyte % (Auto) 0.8, White Blood Count 13.1H, Red Blood Count 3.13L, Hemoglobin 8.7L, Hematocrit 27.5L, Mean Corpuscular Volume 87.9, Mean Corpuscular Hemoglobin 27.8, Mean Corpuscular Hemoglobin Concent 31.6L, Red Cell Distribution Width 14.9H, Platelet Count 250, Neutrophils (%) (Auto) 67.2H, Lymphocytes (%) (Auto) 17.6L, Monocytes (%) (Auto) 12.5H, Eosinophils (%) (Auto) 1.6, Basophils (%) (Auto) 0.3, Neutrophils # (Auto) 8.8H, Lymphocytes # (Auto) 2.3, Monocytes # (Auto) 1.6H, Eosinophils # (Auto) 0.2, Basophils # (Auto) 0.0, Nucleated Red Blood Cells % (auto) 0.0, Blood Urea Nitrogen 22H, Creatinine 1.78H, Sodium Level 139, Potassium Level 4.0, Chloride Level 108H, Carbon Dioxide Level 17L, Anion Gap 14, Glomerular Filtration Rate 29.0L, Calcium Level 9.4, Phosphorus Level 2.8, Albumin 1.7L CBC/BMP Laboratory Tests 11/08/18 05:51 Red Blood Count 3.13 L, Mean Corpuscular Volume 87.9, Mean Corpuscular Hemoglobin 27.8, Mean Corpuscular Hemoglobin Concent 31.6 L, Red Cell Distribution Width 14.9 H, Neutrophils (%) (Auto) 67.2 H, Lymphocytes (%) (Auto) 17.6 L, Monocytes (%) (Auto) 12.5 H, Eosinophils (%) (Auto) 1.6, Basophils (%) (Auto) 0.3, Neutrophils # (Auto) 8.8 H, Lymphocytes # (Auto) 2.3, Monocytes # (Auto) 1.6 H, Eosinophils # (Auto) 0.2, Basophils # (Auto) 0.0, Anion Gap 14 Microbiology Microbiology 11/05/18 Blood Culture - Preliminary, Resulted No Growth after 48 hours. All Specime... 11/05/18 Blood Culture - Preliminary, Resulted No Growth after 48 hours. All Specime... 11/07/18 MRSA Screen - Final, Complete ROSEMARY FARIAS DO Nov 08, 2018 11:20
[2018-11-08 14:00] VITALS: BP 119/57
--- NOTE | 2018-11-08 17:39 | IPNPDOC ---
Text Note Date of Service The patient was seen on 11/08/18. NOTE SUBJECTIVE: Patient was examined at bedside, she is accompanied by her son. She is extremely hard of hearing. She does not appear to be any discomfort. She had no acute complaints. Overnight, she was afebrile. OBJECTIVE: Vital signs: See below PHYSICAL EXAMINATION: GENERAL: Alert, orientated, elderly female, cachectic in appearance HEAD AND NECK: No JVD, neck is supple, head is atraumatic, oral mucosa is moist CARDIOVASCULAR: S1, S2, regular rate. No edema of the bilateral lower extremities. RESPIRATORY: No crackles, diminished breath sounds, no rubs, no wheezing ABDOMEN: Soft. Positive bowel sounds. Nontender. No organomegaly., No guarding MUSCULOSKELETAL: No cyanosis, no clubbing, 2+ pulses, no cyanosis, no edema LABORATORY REVIEW: See below ASSESSMENT AND PLAN: 1. Acute kidney injury superimposed on chronic kidney disease, stage IV. Patient's renal function has returned to baseline. Her calcium is within normal range, phosphorus is within normal range, potassium sodiums within normal range. From a nephrology standpoint. As patient is stable. 2. Hyperkalemia. Within normal range, 3. Left lower lobe pneumonia. Patient is currently on IV Zosyn and vancomycin. Fluid is adequate for her renal function. 4. Anemia secondary to iron deficiency and chronic kidney disease, stage IV. Patient was given IV iron. Please continue IV iron for total of 5 doses. 5. Protein calorie malnutrition. Continue daily Nepro. Encourage oral intake. 6. Hypercalcemia. Has returned to normal range. 7. Left lower lobe cavitary lung lesion. Most likely is lung cancer. Family does not want any further workup. Continue conservative management. Disposition: Nephrology. At this point, nephrology is going to sign off on patient, her renal function is back to baseline with normal potassium, sodium, calcium and phosphorus. Please do not hesitate to reconsult nephrology for any additional problems. Thanks for including nephrology in the care of this patient. VS,Hannah, I+O VS, Hannah, I+O Laboratory Tests 11/08/18 05:51 Red Blood Count 3.13 L, Mean Corpuscular Volume 87.9, Mean Corpuscular Hemoglobin 27.8, Mean Corpuscular Hemoglobin Concent 31.6 L, Red Cell Distribution Width 14.9 H, Neutrophils (%) (Auto) 67.2 H, Lymphocytes (%) (Auto) 17.6 L, Monocytes (%) (Auto) 12.5 H, Eosinophils (%) (Auto) 1.6, Basophils (%) (Auto) 0.3, Neutrophils # (Auto) 8.8 H, Lymphocytes # (Auto) 2.3, Monocytes # (Auto) 1.6 H, Eosinophils # (Auto) 0.2, Basophils # (Auto) 0.0, Anion Gap 14 Vital Signs Date Time Temp Pulse Resp B/P (MAP) Pulse Ox O2 Delivery O2 Flow Rate FiO2 11/08/18 14:00 98.0 78 20 119/57 (77) 96 Room Air I&O- Last 24 Hours up to 6 AM 11/08/18 06:00 Intake Total 1280 ml Output Total 800 ml Balance 480 ml GME ATTESTATION GME ATTESTATION My faculty preceptor for this patient encounter was physically present during the encounter and was fully available. All aspects of the patient interview, examination, medical decision making process, and medical care plan development were reviewed and approved by the faculty preceptor. The faculty preceptor is aware and concurs with the plan as stated in the body of this note and will attest to such by his/her cosignature. MARYLIN COLIN DO Nov 08, 2018 17:39
[2018-11-08 22:00] VITALS: BP 115/56
[2018-11-09] MEDS: PIPERACILLIN/TAZOBACTAM SOD 2.25 GM in D5W MINI-BAG PLUS 50 ML IV SCH ×2 (01:23→09:00)
[2018-11-09 06:00] VITALS: BP 110/62
[2018-11-09 06:34] LABS: BASO # 0.1 10^3/uL (0.0-0.2); BASO % 0.3 % (0.0-1.0); EOS # 0.2 10^3/uL (0.0-0.50); EOS % 1.5 % (0.0-3.0); HEMATOCRIT 27.9 % (36.0-47.0); HEMOGLOBIN 8.8 g/dl (12.0-15.5); LYMPH # 2.6 10^3/uL (1.5-4.5); LYMPH % 17.1 % (24.0-44.0); MEAN CORPUSCULAR HEMOGLOBIN 27.8 pg (27.0-33.0); MEAN CORPUSCULAR HGB CONC 31.5 g/dl (32.0-36.5); MONO # 1.8 10^3/uL (0.0-0.8); NEUTROPHILS # 10.2 10^3/uL (1.8-7.7); NEUTROPHILS % 68.4 % (36.0-66.0); PLATELET COUNT, AUTOMATED 284 10^3/uL (150-450); RED BLOOD COUNT 3.17 10^6/uL (4.00-5.40); WHITE BLOOD COUNT 14.9 10^3/uL (4.0-10.0)
[2018-11-09 06:57] LABS: ALBUMIN 1.9 GM/DL (3.2-5.2); CALCIUM LEVEL 10.2 MG/DL (8.8-10.2); CREATININE FOR GFR 1.81 MG/DL (0.55-1.30); GLOMERULAR FILTRATION RATE 28.4 (>32); PHOSPHORUS LEVEL 2.9 MG/DL (2.5-4.9); POTASSIUM SERUM 3.7 MEQ/L (3.5-5.1)
[2018-11-09] MEDS: IRON SUCROSE 200 MG in NS 100 ML OVER 1 HR IV SCH (09:00)
[2018-11-09] MEDS ORDERED: MORPHINE 10MG/0.5ML ORAL CONCENTRATE SOLUTION U/D SL PRN ×2 (12:45→13:30)
[2018-11-09] MEDS ORDERED: LORazepam 1 MG TAB PO PRN (12:45)
[2018-11-09] MEDS ORDERED: SCOPOLAMINE 1MG TRANSDERMAL PATCH TOP PRN (12:45)
--- NOTE | 2018-11-09 13:33 | IPNPDOC ---
Date Seen The patient was seen on 11/09/18. Progress Note SUBJECTIVE: Patient is an 83-year-old female with decreased oral intake. Patient is evaluated at bedside this afternoon. She is awake, alert, and sitting up in bed about to eat lunch. Her son and [id number] are present at bedside. Patient has been informed of likely malignancy in her lung. She states that she "had an inkling" there was something wrong. She has no concerns at this time. A discussion with patient and family resulted in patient deciding that the best treatment would be for her to be made comfortable. Her wishes will be followed. OBJECTIVE PHYSICAL EXAMINATION: VITAL SIGNS: Please see below. LABORATORY DATA, IMAGING STUDIES, MICROBIOLOGY: Please see below. Chest x-ray, 1 view on 11/05/2018 - large pleural parenchymal opacity left base. CT chest without contrast on 11/05/2018 -large necrotic mass versus infiltrate in left lower lobe with a fluid levels internally, evidence of left hilar and mediastinal lymphadenopathy. DVT prophylaxis ordered?: TEDs and sequentials. ASSESSMENT AND PLAN: This is a 83-year-old female with failure to thrive. PROBLEMS: 1. Failure to thrive: Reported weight in June 2018 was 33.64 kg. Current we ight is reported at 29.27 kg. Current BMI is 13.5. Patient has poor oral intake. Continue with Ensure Enlive 3x daily. Patient's family would like to bring in her Boost, which is appropriate and acceptable. Continue with physical therapy. Appropriate to seek long-term care. Patient has elected for comfort measures only ([employer]). 2. Possible left lower lobe cavitary lesion with possible underlying infiltrate: Likely malignant. Patient and family have declined further invasive procedures. Patient has elected for comfort measures only ([employer]). No further intrusive labs, imaging, or procedures to be conducted. Will abide by patient's wishes for comfort. 3. Leukocytosis: Patient is [employer]. No further labs will be obtained. 4. Hypercalcemia: Nephrology concluded consult. Patient has elected for no further intervention and would like to be made comfort measures only ([employer]ER). Her wishes will be followed. 5. Mixed anemia: [employer]. No further invasive testing will be performed as per patient's wishes. 6. Acute on chronic kidney disease, stage IV: Nephrology has concluded consulted. Patient has elected for comfort measures only ([employer]). 7. Severe protein calorie malnutrition: BMI 13.5. Continue with Ensure Enlive 3x daily. Patient's family will bring in her Boost from home. DISPOSITION: [employer]. Pending placement. VS, I&O, 24H, Fishbone Vital Signs/I&O Vital Signs Date Time Temp Pulse Resp B/P (MAP) Pulse Ox O2 Delivery O2 Flow Rate FiO2 11/09/18 06:00 97.6 82 18 110/62 (78) 95 Room Air I&O- Last 24 Hours up to 6 AM 11/09/18 05:59 Intake Total 1366 ml Output Total 855 ml Balance 511 ml Laboratory Data 24H LABS Laboratory Tests 2 11/09/18 05:48: Immature Granulocyte % (Auto) 0.7, White Blood Count 14.9H, Red Blood Count 3 .17L, Hemoglobin 8.8L, Hematocrit 27.9L, Mean Corpuscular Volume 88.0, Mean Corpuscular Hemoglobin 27.8, Mean Corpuscular Hemoglobin Concent 31.5L, Red Cell Distribution Width 14.9H, Platelet Count 284, Neutrophils (%) (Auto) 68.4H, Lymphocytes (%) (Auto) 17.1L, Monocytes (%) (Auto) 12.0H, Eosinophils (%) (Auto) 1.5, Basophils (%) (Auto) 0.3, Neutrophils # (Auto) 10.2H, Lymphocytes # (Auto) 2.6, Monocytes # (Auto) 1.8H, Eosinophils # (Auto) 0.2, Basophils # (Auto) 0.1, Nucleated Red Blood Cells % (auto) 0.0, Blood Urea Nitrogen 20H, Creatinine 1.81H, Sodium Level 139, Potassium Level 3.7, Chloride Level 110H, Carbon Dioxide Level 20L, Anion Gap 9, Glomerular Filtration Rate 28.4L, Calcium Level 10.2, Phosphorus Level 2.9, Albumin 1.9L CBC/BMP Laboratory Tests 11/09/18 05:48 Red Blood Count 3.17 L, Mean Corpuscular Volume 88.0, Mean Corpuscular Hemoglobin 27.8, Mean Corpuscular Hemoglobin Concent 31.5 L, Red Cell Distribution Width 14.9 H, Neutrophils (%) (Auto) 68.4 H, Lymphocytes (%) (Auto) 17.1 L, Monocytes (%) (Auto) 12.0 H, Eosinophils (%) (Auto) 1.5, Basophils (%) (Auto) 0.3, Neutrophils # (Auto) 10.2 H, Lymphocytes # (Auto) 2.6, Monocytes # (Auto) 1.8 H, Eosinophils # (Auto) 0.2, Basophils # (Auto) 0.1, Anion Gap 9 Microbiology Microbiology 11/05/18 Blood Culture - Preliminary, Resulted No Growth after 72 hours. All specime... 11/05/18 Blood Culture - Preliminary, Resulted No Growth after 72 hours. All specime... 11/07/18 MRSA Screen - Final, Complete ROSEMARY FARIAS DO Nov 09, 2018 13:33
[2018-11-09 14:00] VITALS: BP 143/63
--- NOTE | 2018-11-10 12:52 | IPNPDOC ---
Text Note Date of Service The patient was seen on 11/10/18. NOTE Subjective: Patient is an 80-year-old female with PMHx Dementia, HTN, DLP, Asthma, CKD4 and recent history of necrotic lung lesion who presented to the ER after family was unable to care for her because of progressive weakness. Patient was admitted to the hospital service for further resolution treatment. On 11/09/2018. I had an extensive discussion with the family and patient in regards to management of this necrotic lesion. Given her clinical findings. There is a high suspicion for malignancy. Definitive diagnosis would include biopsy of the lesion in order to get tissue diagnosis. However, after extensive discussion with the family, we have decided not to pursue this route. Patient understands the risks and benefits of not pursuing therapy. At this point, patient will be converted to comfort measures. . We will continue to look for placement options. Patient was seen and examined at the bedside. Patient denies any chest pain, shortness of breath or palpitations. Denies nausea, vomiting, abdominal pain, constipation, diarrhea or discomfort with urination. She notes that her appetite was okay this morning and she's completed her breakfast tray. Objective: Vitals (See below) General: Lying in bed, no acute distress, comfortable, Awake / Alert HEENT: NC, AT CVS: RRR, +S1S2 Lungs: Fair air entry b/l, -w/r/r Abdomen: Soft, ND, NT Extremities: - Edema, - Calf tenderness Assessment : Failure to thrive Necrotic lung mass - likely 2/2 malignancy, possibly 2/2 infectious etiology Leukocytosis Hypercalcemia Normocytic anemia Acute on Chronic kidney disease Severe protein calorie malnutrition DVT prophylaxis Plan: - MOLST form has been updated - Patient has been made [employer]; non-essential medications have been discontinued - Will look into correction placement options VS,Fishbone, I+O VS, Fishbone, I+O Vital Signs Date Time Temp Pulse Resp B/P (MAP) Pulse Ox O2 Delivery O2 Flow Rate FiO2 11/09/18 14:00 98.6 69 18 143/63 (89) 98 Room Air I&O- Last 24 Hours up to 6 AM 11/10/18 06:00 Intake Total 350 ml Output Total 750 ml Balance -400 ml KATIANA AHN MD Nov 10, 2018 12:52
[2018-11-11 00:06] LABS: PTH RELATED PEPTIDE < 2.0 pmol/L (.); VITAMIN D 1,25 DIHYDROXY 25.8 pg/mL (19.9-79.3)
[2018-11-13 14:00] VITALS: BP 102/52
[2018-11-15] MEDS ORDERED: MORP20SO3 PO (10:17)
[2018-11-15] MEDS ORDERED: LORA0.5T11 PO (10:17)
[2018-11-15] MEDS ORDERED: HYOS125TA PO (10:17)
--- NOTE | 2018-11-15 15:06 | DS.PDOC ---
Discharge Summary General Date of Admission Nov 05, 2018 at 13:48 Date of Discharge 11/15/18 Specialist/Consultants Involve: TETE JIMENEZ MD Discharge Summary PROCEDURES PERFORMED DURING STAY: [None]. DISCHARGE DIAGNOSES: #Failure to thrive #Necrotic cavitary lung lesion - likely 2/2 malignancy #LLL PNA #Hypercalcemia #Normocytic anemia #Acute on Chronic kidney disease #Severe protein calorie malnutrition COMPLICATIONS/CHIEF COMPLAINT: Acute Kidney Injury Cavitating Mass Lll. HISTORY OF PRESENT ILLNESS: An 83-year-old female with past medical history of CKD IV, hypertension, hyperlipidemia, asthma, dementia presents to the emergency room for worsening decreased oral intake and lethargy. In the ER she was found to be in acute renal failure and was started on intravenous (IV) fluids. A chest x-ray did show possible cavitary lesions in the left lower lobe. CT chest confirmed findings with high probability of malignancy. Upon recent admission in June, it was noted that she had a 30 pound unintentional weight loss and hypercalcemia. Her hypercalcemia was noted to have worsened. HOSPITAL COURSE: Patient was admitted to the hospital service for further resolution treatment. Initially started on IV fluids and anti-microbial therapy for suspected PNA superimposed on cavitary lesion in LLL. There was an extensive discussion with the family and patient in regards to management of this necrotic lesion, with high suspicion for malignancy. Definitive diagnosis would include biopsy of the lesion in order to get tissue diagnosis. However, after extensive discussion with the family, decision was made not to pursue any further workup. Patient was thus made comfort measures only. DISCHARGE MEDICATIONS: Please see below. ALLERGIES: Please see below. PHYSICAL EXAMINATION ON DISCHARGE: VITAL SIGNS: Please see below. GENERAL: elderly, frail, sitting up in bed, NAD, cachectic HEENT: NC/AT NECK: supple CARDIOVASCULAR EXAMINATION: +S1S2, RRR RESPIRATORY EXAMINATION: diminished breath sounds L>R ABDOMINAL EXAMINATION: soft, nt, +bs EXTREMITIES: no edema PSYCHIATRIC EXAMINATION: does not answer questions LABORATORY DATA: Please see below. ACTIVITY: [As tolerated]. DIET: as tolerated DISPOSITION: [facility]. ITEMS TO FOLLOWUP ON ON OUTPATIENT: 1. Follow up with PCP. DISCHARGE CONDITION: [Stable]. TIME SPENT ON DISCHARGE: Greater than 30 minutes. Vital Signs/I&Os Vital Signs Date Time Temp Pulse Resp B/P (MAP) Pulse Ox O2 Delivery O2 Flow Rate FiO2 11/13/18 14:00 97.3 84 16 102/52 (69 98 Room Air I&O- Last 24 Hours up to 6 AM 11/15/18 06:00 Intake Total 708 ml Output Total 0 ml Balance 708 ml Microbiology Microbiology 11/05/18 Blood Culture - Final, Complete NO GROWTH AFTER 5 DAYS 11/05/18 Blood Culture - Final, Complete NO GROWTH AFTER 5 DAYS 11/07/18 MRSA Screen - Final, Complete Discharge Medications Scheduled PRN Hyoscyamine Sulfate (Hyoscyamine Sulfate) 0.125 Mg Sub, 0.125 MG PO Q4HP PRN for TERMINAL SECRETIONS Use sublingually if unable to swallow Lorazepam (Lorazepam) 0.5 Mg Tab, 0.5 MG PO Q4HP PRN for ANXIETY/AGITATION Use sublingually if unable to swallow Morphine Sulfate (Morphine Sulfate) 100 Mg/5 Ml Renetta, 0.25-1 ML PO Q2H PRN for PAIN OR DYSPNEA Use sublingually if unable to swallow Allergies Coded Allergies: Soap (Verified Allergy, Intermediate, SCENTED SOAPS- RASH, 01/22/13) No Known Drug Allergy (Verified Allergy, Unknown, 01/22/13) KELLY ALLEN MD Nov 15, 2018 14:24
== END 2018-11-15 12:56 | DRG 682 ==
LOC: M ED 10:28 → M ED INP 13:48 → M MSPAV 15:14
PROVIDERS: ADMIT Internal Medicine; ATTEND Internal Medicine
DX: N17.9 Acute kidney failure, unspecified (principal); E43 Unspecified severe protein-calorie malnutrition; J18.9 Pneumonia, unspecified organism; J85.0 Gangrene and necrosis of lung; C34.32 Malignant neoplasm of lower lobe, left bronchus or lung; Z68.1 Body mass index [BMI] 19.9 or less, adult; E87.2 Acidosis; I12.9 Hypertensive chronic kidney disease with stage 1 through stage 4 chronic kidney disease, or unspecified chronic kidney disease; N18.4 Chronic kidney disease, stage 4 (severe); Z66 Do not resuscitate; E87.5 Hyperkalemia; D63.1 Anemia in chronic kidney disease; M81.0 Age-related osteoporosis without current pathological fracture; E86.0 Dehydration; D50.9 Iron deficiency anemia, unspecified; E83.52 Hypercalcemia; E78.5 Hyperlipidemia, unspecified; J45.909 Unspecified asthma, uncomplicated; F03.90 Unspecified dementia, unspecified severity, without behavioral disturbance, psychotic disturbance, mood disturbance, and anxiety; Z51.5 Encounter for palliative care; Z87.891 Personal history of nicotine dependence; D72.829 Elevated white blood cell count, unspecified